=== PATIENT | male | born 1970 | race Caucasian/White ===

== ENCOUNTER 2018-06-09 10:15 | Observation (INO) | payer OTHER, MEDICAID, SELFPAY ==
[2018-06-09] VITALS (15 sets, daily range): BP systolic 112–146; BP diastolic 70–94; PULSE 72–98; RESP 14–90; TEMP 36.5–37.3; O2SAT 16–99; BMI 21.6; BMI 20.4
--- NOTE | 2018-06-09 10:23 | ED.ABDPAIN ---
HPI - Abdominal Pain General Chief Complaint: Abdominal Pain Stated Complaint: RLQ Abdominal Pain Time Seen by Provider: 06/09/18 10:17 Source: patient and EMS Mode of arrival: EMS Limitations: no limitations History of Present Illness HPI narrative: 47-year-old otherwise healthy male presents by air medical transport for evaluation severe right lower quadrant pain and a painful bulge in his groin consistent with incarcerated hernia. The patient was seen and evaluated at an outside facility and sent here for a likely surgical evaluation. Patient has no reported history of injury or known hernia but had sudden onset right lower quadrant pain and the development of this painful bulge about 15 hr ago. His last oral intake was 6:40 p.m. last night. He denies any nausea, vomiting or abdominal pain. He had a bowel movement last night which was. He was given fentanyl 100 mcg IV prior to his arrival. MD complaint: abdominal pain Onset (ago): hour(s) Pain Consistency: constant Location: RLQ Severity: moderate Quality: cramping and aching Radiation: none Migration to: no migration Relieving factors: nothing Exacerbating factors: nothing Associated symptoms: denies other symptoms Related Data Home Medications Medication Instructions Recorded Confirmed No Known Home Medications 06/09/18 06/09/18 Allergies Allergy/AdvReac Type Severity Reaction Status Date / Time aspirin Allergy Hives Verified 06/09/18 10:33 Review of Systems Review of Systems All systems reviewed & are unremarkable except as noted in HPI and below Constitutional Denies chills, Denies fever(s), Denies lethargy and Denies weakness Eyes Denies change in vision, Denies eye discharge, Denies irritation and Denies loss of vision ENT Ears, Nose, Mouth, and Throat: Denies change in voice, Denies neck pain and Denies sore throat Cardiovascular Denies chest pain, Denies irregular heart rhythm, Denies lightheadedness, Denies palpitations, Denies dyspnea, Denies dyspnea on exertion and Denies orthopnea Respiratory Denies cough, Denies dyspnea, Denies dyspnea on exertion and Denies wheezing Gastrointestinal Gastrointestinal: Reports abdominal pain, Denies change in bowel habits, Denies diarrhea, Denies nausea and Denies vomiting Genitourinary Denies hematuria, Denies flank pain, Denies urinary incontinence and Denies urinary urgency Musculoskeletal Denies neck pain Integumentary/Breasts Denies pruritus, Denies erythema, Denies rash and Denies wounds Neurologic Denies confusion, Denies loss of vision and Denies weakness Psychiatric Denies anxiety, Denies confusion, Denies depression, Denies homicidal ideation and Denies suicidal ideation Endocrine Denies palpitations Hematologic/Lymphatic Denies easy bruising Allergic/Immunologic Denies wheezing [facility] Social History household members: none Smoking Status: Current every day smoker alcohol intake: current Exam Narrative Exam Narrative: 47-year-old male, obviously in pain, clutching his right lower abdomen. Initial Vital Signs Initial Vital Signs: Vital Signs Temperature 98.4 F 06/09/18 10:26 Pulse Rate 90 06/09/18 10:26 Respiratory Rate 20 06/09/18 10:26 Blood Pressure 146/87 H 06/09/18 10:26 Pulse Oximetry 98 06/09/18 10:26 Const General: cooperative, well developed and in distress Nutritional Appearance: well nourished Orientation: alert, awake, oriented x3 and not confused HENRI Head: normocephalic and atraumatic Ears: external ears normal and TM's normal bilaterally Nose: external nose normal and No nasal discharge Face and sinus: sinuses nontender, face symmetric, no sinus tenderness and No dry mucous membranes Mouth: oral mucosae normal and moist mucous membranes Teeth and gingiva: dentition normal Throat: tonsils normal and uvula midline Neck Neck: normal visual inspection, trachea midline, No lymphadenopathy, No midline deformity and No JVD Lymphatic: No lymphedema Resp Effort & Inspection: normal respiratory effort, able to speak in complete sentences, no respiratory distress and no use of accessory muscles Auscultation: clear to auscultation bilaterally, no rales, no rhonchi and no wheezes GI Inspection: non-distended Palpation: soft, no hepatosplenomegaly, No guarding, No pulsatile mass and tender (RLQ with painful bulge in inguinal region. Unable to completely reduce. No overlying erythema.) Auscultation: normal bowel sounds Other: no testicular pain or swelling Course Orders Ordered: Dextrose/Sodium Chloride (Dextrose 5%-0.45% Ns) 1,000 mls @ 100 mls/hr IV CONT YUE Last Admin: 06/09/18 18:10 Dose: 100 mls/hr Morphine Sulfate (Morphine) 2 mg IV Q4HR PRN PRN Reason: Pain, Moderate (4-6) Oxycodone/Acetaminophen (Percocet 5/325) 2 tab PO Q4HR PRN PRN Reason: Pain, Moderate (4-6) Ranitidine HCl (Zantac) 150 mg PO BID [facility] Last Admin: 06/09/18 20:23 Dose: 150 mg Discontinued Medications Acetaminophen (Tylenol) 325 mg PO NOW PRN PRN Reason: Pain, Mild (1-3) Bacitracin (Bacitracin) 50,000 unit IRR NOW ONE Stop: 06/09/18 16:37 Last Admin: 06/09/18 16:36 Dose: 50,000 unit Bupivacaine HCl (Sensorcaine 0.5% (Pf)) 30 ml INJ NOW ONE Stop: 06/09/18 16:36 Last Admin: 06/09/18 16:35 Dose: 20 ml Fentanyl (Sublimaze) 50 mcg IV NOW ONE Stop: 06/09/18 11:21 Last Admin: 06/09/18 11:20 Dose: 50 mcg Fentanyl (Sublimaze) 50 mcg IV Q5MIN PRN PRN Reason: Pain, Moderate (4-6) Hydromorphone HCl (Dilaudid) 0.5 mg IV Q5MIN PRN PRN Reason: Pain, Moderate (4-6) Cefotetan Disodium/Dextrose (Cefotan) 2 gm in 50 mls @ 0 mls/hr IV NOW ONE Stop: 06/09/18 11:42 Last Admin: 06/09/18 15:48 Dose: Lactated Ringer's (Lactated Ringers) 1,000 mls @ 100 mls/hr IV CONT [facility] Last Infusion: 06/09/18 17:27 Dose: 0 mls/hr Admin: 06/09/18 14:08 Dose: 100 mls/hr Lactated Ringer's (Lactated Ringers) 1,000 mls @ 42 mls/hr IV CONT [facility] Last Admin: 06/09/18 18:33 Dose: Not Given Cefazolin Sodium/Dextrose (Ancef) 1 gm in 50 mls @ 200 mls/hr IV NOW ONE Stop: 06/09/18 16:52 Last Infusion: 06/09/18 16:15 Dose: 0 mls/hr Admin: 06/09/18 16:08 Dose: 200 mls/hr Meperidine HCl (Demerol) 25 mg IV Q5MIN PRN PRN Reason: Pain or shivering Metoclopramide HCl (Reglan) 10 mg IV NOW PRN PRN Reason: Nausea And Vomiting Midazolam HCl (Versed) 2 mg IV NOW ONE Stop: 06/09/18 11:11 Last Admin: 06/09/18 11:10 Dose: 2 mg Morphine Sulfate (Morphine) 2 mg IV Q2HR PRN PRN Reason: Pain, Moderate (4-6) Last Admin: 06/09/18 14:05 Dose: 2 mg Neomycin/Polymyxin/Bacitracin (Neosporin) 1 each TOP NOW ONE Stop: 06/09/18 16:51 Last Admin: 06/09/18 16:51 Dose: 1 each Nicotine (Nicoderm) 21 mg TOP NOW ONE Stop: 06/09/18 17:55 Last Admin: 06/09/18 18:10 Dose: 21 mg Ondansetron HCl (Zofran) 4 mg IV NOW PRN PRN Reason: Nausea And Vomiting Oxycodone/Acetaminophen (Percocet 5/325) 1 tab PO Q30MIN PRN PRN Reason: Mild or moderate pain Vital Signs - 8 hr 06/09/18 13:31 06/09/18 15:24 06/09/18 16:55 Temperature 98 F 99 F 98.3 F Pulse Rate 86 72 87 Respiratory Rate 18 16 15 Blood Pressure 142/90 H 143/74 H 115/75 Pulse Oximetry 96 97 98 06/09/18 17:00 06/09/18 17:05 06/09/18 17:21 Temperature 99.2 F Pulse Rate 87 89 89 Respiratory Rate 16 16 16 Blood Pressure 113/76 112/75 141/94 H Pulse Oximetry 98 98 98 06/09/18 17:44 06/09/18 17:57 06/09/18 18:25 Temperature 98.3 F 98.5 F Pulse Rate 86 92 H 90 Respiratory Rate 16 16 90 H Blood Pressure 132/83 138/70 121/70 Pulse Oximetry 96 95 16 L 06/09/18 18:55 06/09/18 20:07 Temperature 98.1 F 97.7 F Pulse Rate 78 77 Respiratory Rate 16 16 Blood Pressure 116/70 123/76 Pulse Oximetry 97 98 MDM - Abdominal Pain Lab Data Result diagrams: 06/09/18 10:45 06/09/18 10:45 Lab Results 06/09/18 06/09/18 06/09/18 Range/Units 10:45 10:45 10:45 WBC 13.1 H (4.5-11.0) X10^3/uL RBC 4.47 L (4.5-5.9) X10^6/uL Hgb 14.9 (13.5-17.5) g/dL Hct 43.8 (41-53) % MCV 97.9 (80-100) fL MCH 33.3 (26-34) PG MCHC 34.0 (30-36) % RDW 13.5 (11.6-14.8) % Plt Count 254 (150-400) X10^3/uL Neut % (Auto) 83.0 H (50-75) % Lymph % (Auto) 9.8 L (25-40) % [place] % (Auto) 6.8 (3-14) % Eos % (Auto) 0.1 L (2-4) % Baso % (Auto) 0.3 (0-2) % Neut # (Auto) 06057 H (8394-6706) /uL Sodium 140 (137-145) mmol/L Potassium 4.0 (3.4-5.1) mmol/L Chloride 95 L (98-107) mmol/L Carbon Dioxide 35 H (22-32) mmol/L BUN 16 (9-20) mg/dL Creatinine 0.70 (0.66-1.25) mg/dL Estimated GFR > 60.0 (>60) mL/min BUN/Creatinine Ratio 22.9 H (6-22) Glucose 135 H (70-100) mg/dL Lactate 0.9 (0.7-2.1) mmol/L Calcium 9.7 (8.4-10.2) mg/dL Total Bilirubin 0.9 (0.2-1.3) mg/dL AST 23 (17-59) IU/L ALT 30 (21-72) IU/L Alkaline Phosphatase 93 (38-126) U/L Total Protein 7.6 (6.3-8.2) g/dL Albumin 4.6 (3.5-5.0) g/dL Globulin 3.0 (1.7-4.1) g/dL Albumin/Globulin Ratio 1.5 (1.0-2.8) Discharge Plan Departure Patient Disposition: Admitted As Inpatient Clinical Impression: Incarcerated inguinal hernia Discharge Date/Time: 06/09/18 12:50 Interventions: ED Discharge Assessment Last Done: 06/09/18 12:06 Admit Date/Time: 06/09/18 11:26 Admit Provider: Boom Perez
--- NOTE | 2018-06-09 11:00 | PC.NURSE ---
surgeon at bedside. Verbal consent from pt for surgery if unable to manipulate bowel appropriately with palpation. Paper consent signed by surgeon, placed on chart.
[2018-06-09 11:02] LABS: Add Manual Diff / Slide Review NO; Basophils Percent Auto 0.3 % (0-2); Eosinophils Percent Auto 0.1 % (2-4); Hematocrit 43.8 % (41-53); Hemoglobin 14.9 g/dL (13.5-17.5); Lymphocytes Percent Auto 9.8 % (25-40); Mean Corpuscular Hemoglobin 33.3 PG (26-34); Mean Corpuscular Volume 97.9 fL (80-100); Monocytes Percent Auto 6.8 % (3-14); Neutrophils Absolute Auto 10900 /uL (3000-5900); Platelet Count 254 X10^3/uL (150-400); Red Blood Cell Count 4.47 X10^6/uL (4.5-5.9); Red Cell Distribution Width 13.5 % (11.6-14.8); White Blood Cell Count 13.1 X10^3/uL (4.5-11.0)
[2018-06-09 11:06] LABS: Lactate (Lactic Acid) 0.9 mmol/L (0.7-2.1)
[2018-06-09 11:07] LABS: Alanine Aminotransferase 30 IU/L (21-72); Albumin 4.6 g/dL (3.5-5.0); Albumin Globulin Ratio 1.5 (1.0-2.8); Alkaline Phosphatase 93 U/L (38-126); Aspartate Aminotransferase 23 IU/L (17-59); BUN Creatinine Ratio 22.9 (6-22); Bilirubin Total 0.9 mg/dL (0.2-1.3); Blood Urea Nitrogen 16 mg/dL (9-20); Calcium 9.7 mg/dL (8.4-10.2); Carbon Dioxide 35 mmol/L (22-32); Chloride 95 mmol/L (98-107); Estimated Glomerular Filt Rate > 60.0 mL/min (>60); Glucose 135 mg/dL (70-100); HEMOLYSIS < 15 (0-50); Sodium 140 mmol/L (137-145); Total Protein 7.6 g/dL (6.3-8.2)
[2018-06-09] MEDS: MIDAZOLAM 2 MG/2 ML VIAL IV (11:10)
[2018-06-09] MEDS: fentaNYL 100 MCG/2 ML INJ 50 MCG IV (11:20)
--- NOTE | 2018-06-09 12:10 | ED_ITS ---
HPI - Abdominal Pain General Chief Complaint: Abdominal Pain Stated Complaint: RLQ Abdominal Pain Time Seen by Provider: 06/09/18 10:17 Source: patient and EMS Mode of arrival: EMS Limitations: no limitations History of Present Illness HPI narrative: 47-year-old otherwise healthy male presents by air medical transport for evaluation severe right lower quadrant pain and a painful bulge in his groin consistent with incarcerated hernia. The patient was seen and evaluated at an outside facility and sent here for a likely surgical evaluation. Patient has no reported history of injury or known hernia but had sudden onset right lower quadrant pain and the development of this painful bulge about 15 hr ago. His last oral intake was 6:40 p.m. last night. He denies any nausea, vomiting or abdominal pain. He had a bowel movement last night which was. He was given fentanyl 100 mcg IV prior to his arrival. MD complaint: abdominal pain Onset (ago): hour(s) Pain Consistency: constant Location: RLQ Severity: moderate Quality: cramping and aching Radiation: none Migration to: no migration Relieving factors: nothing Exacerbating factors: nothing Associated symptoms: denies other symptoms Related Data Home Medications Medication Instructions Recorded Confirmed No Known Home Medications 06/09/18 06/09/18 Allergies Allergy/AdvReac Type Severity Reaction Status Date / Time aspirin Allergy Hives Verified 06/09/18 10:33 Review of Systems Review of Systems All systems reviewed & are unremarkable except as noted in HPI and below Constitutional Denies chills, Denies fever(s), Denies lethargy and Denies weakness Eyes Denies change in vision, Denies eye discharge, Denies irritation and Denies loss of vision ENT Ears, Nose, Mouth, and Throat: Denies change in voice, Denies neck pain and Denies sore throat Cardiovascular Denies chest pain, Denies irregular heart rhythm, Denies lightheadedness, Denies palpitations, Denies dyspnea, Denies dyspnea on exertion and Denies orthopnea Respiratory Denies cough, Denies dyspnea, Denies dyspnea on exertion and Denies wheezing Gastrointestinal Gastrointestinal: Reports abdominal pain, Denies change in bowel habits, Denies diarrhea, Denies nausea and Denies vomiting Genitourinary Denies hematuria, Denies flank pain, Denies urinary incontinence and Denies urinary urgency Musculoskeletal Denies neck pain Integumentary/Breasts Denies pruritus, Denies erythema, Denies rash and Denies wounds Neurologic Denies confusion, Denies loss of vision and Denies weakness Psychiatric Denies anxiety, Denies confusion, Denies depression, Denies homicidal ideation and Denies suicidal ideation Endocrine Denies palpitations Hematologic/Lymphatic Denies easy bruising Allergic/Immunologic Denies wheezing [facility] Social History household members: none Smoking Status: Current every day smoker alcohol intake: current Exam Narrative Exam Narrative: 47-year-old male, obviously in pain, clutching his right lower abdomen. Initial Vital Signs Initial Vital Signs: Vital Signs Temperature 98.4 F 06/09/18 10:26 Pulse Rate 90 06/09/18 10:26 Respiratory Rate 20 06/09/18 10:26 Blood Pressure 146/87 H 06/09/18 10:26 Pulse Oximetry 98 06/09/18 10:26 Const General: cooperative, well developed and in distress Nutritional Appearance: well nourished Orientation: alert, awake, oriented x3 and not confused HENDE Head: normocephalic and atraumatic Ears: external ears normal and TM's normal bilaterally Nose: external nose normal and No nasal discharge Face and sinus: sinuses nontender, face symmetric, no sinus tenderness and No dry mucous membranes Mouth: oral mucosae normal and moist mucous membranes Teeth and gingiva: dentition normal Throat: tonsils normal and uvula midline Neck Neck: normal visual inspection, trachea midline, No lymphadenopathy, No midline deformity and No JVD Lymphatic: No lymphedema Resp Effort & Inspection: normal respiratory effort, able to speak in complete sentences, no respiratory distress and no use of accessory muscles Auscultation: clear to auscultation bilaterally, no rales, no rhonchi and no wheezes GI Inspection: non-distended Palpation: soft, no hepatosplenomegaly, No guarding, No pulsatile mass and tender (RLQ with painful bulge in inguinal region. Unable to completely reduce. No overlying erythema.) Auscultation: normal bowel sounds Other: no testicular pain or swelling Course Orders Ordered: Dextrose/Sodium Chloride (Dextrose 5%-0.45% Ns) 1,000 mls @ 100 mls/hr IV CONT YUE Last Admin: 06/09/18 18:10 Dose: 100 mls/hr Morphine Sulfate (Morphine) 2 mg IV Q4HR PRN PRN Reason: Pain, Moderate (4-6) Oxycodone/Acetaminophen (Percocet 5/325) 2 tab PO Q4HR PRN PRN Reason: Pain, Moderate (4-6) Ranitidine HCl (Zantac) 150 mg PO BID [facility] Last Admin: 06/09/18 20:23 Dose: 150 mg Discontinued Medications Acetaminophen (Tylenol) 325 mg PO NOW PRN PRN Reason: Pain, Mild (1-3) Bacitracin (Bacitracin) 50,000 unit IRR NOW ONE Stop: 06/09/18 16:37 Last Admin: 06/09/18 16:36 Dose: 50,000 unit Bupivacaine HCl (Sensorcaine 0.5% (Pf)) 30 ml INJ NOW ONE Stop: 06/09/18 16:36 Last Admin: 06/09/18 16:35 Dose: 20 ml Fentanyl (Sublimaze) 50 mcg IV NOW ONE Stop: 06/09/18 11:21 Last Admin: 06/09/18 11:20 Dose: 50 mcg Fentanyl (Sublimaze) 50 mcg IV Q5MIN PRN PRN Reason: Pain, Moderate (4-6) Hydromorphone HCl (Dilaudid) 0.5 mg IV Q5MIN PRN PRN Reason: Pain, Moderate (4-6) Cefotetan Disodium/Dextrose (Cefotan) 2 gm in 50 mls @ 0 mls/hr IV NOW ONE Stop: 06/09/18 11:42 Last Admin: 06/09/18 15:48 Dose: Lactated Ringer's (Lactated Ringers) 1,000 mls @ 100 mls/hr IV CONT [facility] Last Infusion: 06/09/18 17:27 Dose: 0 mls/hr Admin: 06/09/18 14:08 Dose: 100 mls/hr Lactated Ringer's (Lactated Ringers) 1,000 mls @ 42 mls/hr IV CONT [facility] Last Admin: 06/09/18 18:33 Dose: Not Given Cefazolin Sodium/Dextrose (Ancef) 1 gm in 50 mls @ 200 mls/hr IV NOW ONE Stop: 06/09/18 16:52 Last Infusion: 06/09/18 16:15 Dose: 0 mls/hr Admin: 06/09/18 16:08 Dose: 200 mls/hr Meperidine HCl (Demerol) 25 mg IV Q5MIN PRN PRN Reason: Pain or shivering Metoclopramide HCl (Reglan) 10 mg IV NOW PRN PRN Reason: Nausea And Vomiting Midazolam HCl (Versed) 2 mg IV NOW ONE Stop: 06/09/18 11:11 Last Admin: 06/09/18 11:10 Dose: 2 mg Morphine Sulfate (Morphine) 2 mg IV Q2HR PRN PRN Reason: Pain, Moderate (4-6) Last Admin: 06/09/18 14:05 Dose: 2 mg Neomycin/Polymyxin/Bacitracin (Neosporin) 1 each TOP NOW ONE Stop: 06/09/18 16:51 Last Admin: 06/09/18 16:51 Dose: 1 each Nicotine (Nicoderm) 21 mg TOP NOW ONE Stop: 06/09/18 17:55 Last Admin: 06/09/18 18:10 Dose: 21 mg Ondansetron HCl (Zofran) 4 mg IV NOW PRN PRN Reason: Nausea And Vomiting Oxycodone/Acetaminophen (Percocet 5/325) 1 tab PO Q30MIN PRN PRN Reason: Mild or moderate pain Vital Signs - 8 hr 06/09/18 13:31 06/09/18 15:24 06/09/18 16:55 Temperature 98 F 99 F 98.3 F Pulse Rate 86 72 87 Respiratory Rate 18 16 15 Blood Pressure 142/90 H 143/74 H 115/75 Pulse Oximetry 96 97 98 06/09/18 17:00 06/09/18 17:05 06/09/18 17:21 Temperature 99.2 F Pulse Rate 87 89 89 Respiratory Rate 16 16 16 Blood Pressure 113/76 112/75 141/94 H Pulse Oximetry 98 98 98 06/09/18 17:44 06/09/18 17:57 06/09/18 18:25 Temperature 98.3 F 98.5 F Pulse Rate 86 92 H 90 Respiratory Rate 16 16 90 H Blood Pressure 132/83 138/70 121/70 Pulse Oximetry 96 95 16 L 06/09/18 18:55 06/09/18 20:07 Temperature 98.1 F 97.7 F Pulse Rate 78 77 Respiratory Rate 16 16 Blood Pressure 116/70 123/76 Pulse Oximetry 97 98 MDM - Abdominal Pain Lab Data Result diagrams: 06/09/18 10:45 06/09/18 10:45 Lab Results 06/09/18 06/09/18 06/09/18 Range/Units 10:45 10:45 10:45 WBC 13.1 H (4.5-11.0) X10^3/uL RBC 4.47 L (4.5-5.9) X10^6/uL Hgb 14.9 (13.5-17.5) g/dL Hct 43.8 (41-53) % MCV 97.9 (80-100) fL MCH 33.3 (26-34) PG MCHC 34.0 (30-36) % RDW 13.5 (11.6-14.8) % Plt Count 254 (150-400) X10^3/uL Neut % (Auto) 83.0 H (50-75) % Lymph % (Auto) 9.8 L (25-40) % [place] % (Auto) 6.8 (3-14) % Eos % (Auto) 0.1 L (2-4) % Baso % (Auto) 0.3 (0-2) % Neut # (Auto) 47908 H (4227-9037) /uL Sodium 140 (137-145) mmol/L Potassium 4.0 (3.4-5.1) mmol/L Chloride 95 L (98-107) mmol/L Carbon Dioxide 35 H (22-32) mmol/L BUN 16 (9-20) mg/dL Creatinine 0.70 (0.66-1.25) mg/dL Estimated GFR > 60.0 (>60) mL/min BUN/Creatinine Ratio 22.9 H (6-22) Glucose 135 H (70-100) mg/dL Lactate 0.9 (0.7-2.1) mmol/L Calcium 9.7 (8.4-10.2) mg/dL Total Bilirubin 0.9 (0.2-1.3) mg/dL AST 23 (17-59) IU/L ALT 30 (21-72) IU/L Alkaline Phosphatase 93 (38-126) U/L Total Protein 7.6 (6.3-8.2) g/dL Albumin 4.6 (3.5-5.0) g/dL Globulin 3.0 (1.7-4.1) g/dL Albumin/Globulin Ratio 1.5 (1.0-2.8) Discharge Plan Departure Patient Disposition: Admitted As Inpatient Clinical Impression: Incarcerated inguinal hernia Discharge Date/Time: 06/09/18 12:50 Interventions: ED Discharge Assessment Last Done: 06/09/18 12:06 Admit Date/Time: 06/09/18 11:26 Admit Provider: Boom Perez
--- NOTE | 2018-06-09 13:37 | PC.ADMIT ---
[facility] Admission Note: The patient,Royer Boone,47 y/o, was given written information regarding hospital policies, unit procedures and contact persons. Patient's smoking status: Current every day smoker. Vital Signs - 8 hr 06/09/18 10:26 06/09/18 11:17 06/09/18 11:44 Temperature 98.4 F Pulse Rate 90 90 98 H Respiratory Rate 20 14 16 Blood Pressure 146/87 H Blood Pressure [Right Arm] 139/72 131/86 Pulse Oximetry 98 98 99 06/09/18 13:31 Temperature 98 F Pulse Rate 86 Respiratory Rate 18 Blood Pressure 142/90 H Blood Pressure [Right Arm] Pulse Oximetry 96 Patient denies daily ETOH. States some days he'll have a couple beers, some days a 6 pack, some times he'll go a few days without ETOH. Dr. Pereira notified. No CIWA for now. Monitor closely and [facility]OC to [facility] tomorrow am. Received verbal telephone orders for pain management, IVF. Patient states he is a [employer], and he started feeling poorly last night, with abd pain, vomiting. Npo since last night. Report given to Angelica, primary RN.
[2018-06-09] MEDS: MORPHINE 2 MG/ML INJ IV (14:05)
[2018-06-09] MEDS: LACTATED RINGERS 1,000 ML 100 ML IV (14:08)
--- NOTE | 2018-06-09 14:50 | HP_ITS ---
DATE OF SERVICE: 06/09/2018 Patient is in the emergency room, 47 years old, developed sudden painful mass in the right groin last evening, then was flown over to [facility] from, I think, [facility], given some analgesics during the flight, and on arrival in the emergency room here, he has an obvious incarcerated strangulated right inguinal hernia. The emergency room physician, Dr. Ceron, attempted to reduce this hernia and was able to get about 50% of it reduced. I came down and gave the patient some Versed and fentanyl, and I am unable to reduce it any further. Patient has white count of 13,000. Initially had an elevated lactate which has now returned to normal on repeat but he has an incarcerated, possibly strangulated, right inguinal hernia and he will be prepared for surgery urgently. Unfortunately, the operating rooms are all full and we will probably be able to operate on him within about 4-5 hours. In the interim, I'm giving him some IV antibiotics and will admitted to the hospital, keep him n.p.o. I did explain to the patient before I gave him any Versed and fentanyl here in the emergency room that he may need an open operation and he fully understood and agreed, so we will have him sign a consent for that. I have 2 witnesses that that, both Dr. Ceron and the ER nurse. PAST MEDICAL HISTORY: Denies any prior surgery. Denies diabetes, heart disease, or hypertension. ALLERGIES: NO KNOWN ALLERGIES. MEDICATIONS: He has no known home medications. REVIEW OF SYSTEMS: On system review, he denies exertional chest pain or unusual or shortness of breath. G.I. is negative. negative. Neurologic is no history of strokes or seizures. PHYSICAL EXAMINATION VITAL SIGNS: Blood pressure 139/72, heart rate 90, respirations 14, room air O2 sat 98%. HEENT: Ears, nose, and throat are normal. NECK: No adenopathy. CHEST: Lungs are clear. HEART: Regular rhythm, no murmur. ABDOMEN: Somewhat tender in the midepigastrium and periumbilical area, mildly so. No signs of peritonitis. Right groin exam: He has a non-reducible rock- hard mass which is very tender. I am unable to reduce that mass. The remaining physical is unremarkable. DIAGNOSIS: Incarcerated, possibly strangulated, right inguinal hernia. PLAN: IV fluids, antibiotics, and urgent surgery which will be done open. Royer Boone - Danielle/ doc#: [id number]/job#: [id number] dd: 06/09/2018 11:37:00 dt: 06/09/2018 14:37:00 DICTATING MD/COPIES TO: Boom Perez MD COPIES MNE: MALINI
[2018-06-09] MEDS: CEFAZOLIN 1 GM/50 ML FROZ.PIGGY IV (16:08)
--- NOTE | 2018-06-09 16:24 | SUR.OPER ---
Supine on padded OR bed, head on pillow, arms secured on padded arm boards at <90 degrees abduction, legs uncrossed, safety belt at thigh, tape over blanket over lower legs.
[2018-06-09] MEDS: BUPIVACAINE 0.5% (PF) VIAL 30 ML INJ (16:35)
[2018-06-09] MEDS: BACITRACIN 50,000 UNIT VIAL 50000 UNIT IRR (16:36)
[2018-06-09] MEDS: NEOMYCIN/POLYMYXIN/BACITRA UD OINT 1 EACH TOP (16:51)
[2018-06-09] MEDS: DEXTROSE 5%-0.45% NS 1,000 ML 100 ML IV (18:10)
[2018-06-09] MEDS: NICOTINE 21 MG PATCH TOP (18:10)
--- NOTE | 2018-06-09 18:34 | OP_ITS ---
DATE OF SERVICE: 06/09/2018 PREOP DIAGNOSIS: Incarcerated right inguinal hernia. POSTOP DIAGNOSIS: Incarcerated right femoral hernia. PROCEDURE: Modified Samantha repair of an incarcerated right femoral hernia. SURGEON: Boom Perez MD DESCRIPTION OF PROCEDURE: Patient is given a general anesthetic and he was properly identified during surgical pause. The right inguinal incision was made exposing Juliano fascia, divided sharply. The commonly encountered venous structures were ligated with 2-0 Vicryl. There was excellent hemostasis. The external oblique aponeurosis was opened in the direction of its fibers through the external spermatic ring. The spermatic cord was elevated. The patient's inguinal mass which was inflamed, actually exited the femoral canal below Poupart ligament and as such represented an incarcerated right femoral hernia, so I divided Poupart ligament to free up and open the sac. The hernia sac contained incarcerated omentum which was viable. This was reduced back into the peritoneal cavity. Next, I fashioned a portion of polypropylene mesh to cover Hesselbach triangle and re-created Poupart ligament with the inferior edge of the mesh, stapling the mesh first to the pubic tubercle, and then stapling it down David ligament for short distance, and then reattaching the Poupart ligament to the mesh with jojo. Then I carried the medial jojo up over the conjoined tendon completely covering Hesselbach triangle. Care was taken to avoid injury to the ilioinguinal nerve which was easily apparent, and then I made an aperture or fishtail in the lateral aspect of the mesh to allow for exiting of the spermatic cord. The spermatic cord then lays on top of the mesh. The area was then irrigated with copious bacitracin saline, aspirated dry. There was no bleeding. I closed the external oblique aponeurosis over the cord and mesh with 2-0 running Vicryl. Closed the Juliano's with interrupted Vicryl. There was excellent hemostasis. Stapled the skin. Sterile dressing was applied. Procedure was very well tolerated. Local was administered to the superficial wound. Royer Boone - /juan miguel/ doc#: [id number]/job#: [id number] dd: 06/09/2018 17:00:00 dt: 06/09/2018 18:17:00 DICTATING MD/COPIES TO: Boom Perez MD COPIES MNE: MALINI
[2018-06-10 00:10] VITALS: BP 128/67; PULSE 84; RESP 18; TEMP 36.2; O2SAT 95
[2018-06-10 04:00] VITALS: BP 114/70; PULSE 77; RESP 18; TEMP 36.5; O2SAT 95
[2018-06-10] MEDS: OXYCODONE/ACETAMINOPHEN 5/325 TABLET 2 TAB PO ×2 (04:12→08:34)
[2018-06-10] MEDS: DEXTROSE 5%-0.45% NS 1,000 ML 100 ML IV (05:23)
[2018-06-10 07:30] VITALS: BP 113/69; PULSE 69; RESP 16; TEMP 36.4; O2SAT 97
--- NOTE | 2018-06-10 12:48 | CM.IDA ---
DCP Assessment Note: Pt eager to leave this morning. Dressed and ready, sitting in chair when this MUSIC THEORY TEACHER visited. Mom picking pt up today and pt plans to take the evening ferry back to [place]. No barriers to safe [place] home. STEF Aguilera Discharge Planning/Care Management CM Discharge Assessment Start: 06/10/18 12:45 Freq: Status: Active Protocol: Document 06/10/18 12:45 SADAF (Rec: 06/10/18 12:48 [id number]) Discharge Planning Assessment Assigned Superintendent Power STEF Bajwa DPOA/Assigned Designee Name erin Kauffman Contact Information [phone] Advance Directives? No History Provided By Patient Prior Living Arrangements Mobile home Household Members none Independent with ADL's Yes Is patient alert and oriented? Yes Barriers to Discharge No Discharge Plan Home Transportation Arrangement Mom to transport, ferry home this evening Referrals Initiated None needed Additional Comment Home w/ no needs. Pt feels a lot better than he did before surgery. Whiteboard Updated in Patient Room with Yes name and ext. # of Superintendent Power Review Status In Process Please Provide Date Initial DC 06/10/18 Assessment Was Performed
== END 2018-06-10 11:10 | disposition home or self-care (01) ==
LOC: ED 11:18 → AC 11:28
PROVIDERS: Admitting Provider Surgery; Emergency Provider Emergency Medicine; Visit Provider Surgery
PROC: (CPT 49553; principal; 2018-06-09 16:00)
DX: R10.11 Right upper quadrant pain (principal); F17.210 Nicotine dependence, cigarettes, uncomplicated
CPT/HCPCS: 49553; 36415; 80053; 83605; 85025; 96374; 96375; 99219; 99282; 99285; 99406; C1781; G0378; J1100; J1885; J2250; J2270; J2405; J2704; J3010

== ENCOUNTER → 2021-06-26 10:08 | Outpatient (CLI) | payer OTHER, MEDICAID, SELFPAY ==
[2018-12-19 12:03] VITALS: BMI 21.6
[2021-06-26 18:51] LABS: Add Manual Diff / Slide Review NO; Basophils Absolute Auto 0 /uL (0-100); Basophils Percent Auto 0.5 % (0-2); Eosinophils Absolute Auto 100 /uL (0-450); Eosinophils Percent Auto 1.2 % (2-4); Hematocrit 39.8 % (41-53); Hemoglobin 13.5 g/dL (13.5-17.5); Lymphocytes Absolute Auto 2100 /uL (1100-4500); Lymphocytes Percent Auto 23.2 % (25-40); Mean Corpuscular Hemoglobin 33.9 PG (26-34); Mean Corpuscular Volume 99.7 fL (80-100); Monocytes Absolute Auto 700 /uL (0-900); Monocytes Percent Auto 7.3 % (3-14); Neutrophils Absolute Auto 6300 /uL (1500-7000); Neutrophils Percent Auto 67.8 % (50-75); Platelet Count 212 X10^3/uL (150-400); Red Blood Cell Count 3.99 X10^6/uL (4.5-5.9); Red Cell Distribution Width 12.8 % (11.6-14.8); White Blood Cell Count 9.2 X10^3/uL (4.5-11.0)
[2021-06-26 19:07] LABS: Alanine Aminotransferase 25 IU/L (<50); Albumin 4.3 g/dL (3.5-5.0); Albumin Globulin Ratio 1.6 (1.0-2.8); Alkaline Phosphatase 121 U/L (38-126); Aspartate Aminotransferase 23 IU/L (17-59); BUN Creatinine Ratio 17.1 (6-22); Bilirubin Total 0.4 mg/dL (0.2-1.3); Blood Urea Nitrogen 12 mg/dL (9-20); Calcium 9.2 mg/dL (8.4-10.2); Carbon Dioxide 25 mmol/L (22-32); Chloride 103 mmol/L (98-107); Cholesterol 179 mg/dL (140-199); Estimated Glomerular Filt Rate > 60.0 mL/min (>60); Globulin 2.7 g/dL (1.7-4.1); Glucose 98 mg/dL (70-100); HDL Cholesterol 47 mg/dL (40-60); HEMOLYSIS < 15 (0-50); LDL Cholesterol Calculated 108 mg/dL (<100); Potassium 4.8 mmol/L (3.4-5.1); Sodium 139 mmol/L (137-145); Triglycerides 122 mg/dL (35-150)
[2021-06-26 19:10] LABS: Hemoglobin A1C% w Est Avg Glu 5.4 % (4.0-6.0)
[2021-06-26 19:37] LABS: Prostate Specific Antigen Scrn 0.372 ng/mL (0.1-4.0)
== END ==
PROVIDERS: PCP Family Medicine; Visit Provider Physician Assistant
DX: F17.209 Nicotine dependence, unspecified, with unspecified nicotine-induced disorders (principal); Z87.898 Personal history of other specified conditions; Z12.5 Encounter for screening for malignant neoplasm of prostate
CPT/HCPCS: 80053; 80061; 83036; 85025; G0103

== ENCOUNTER → 2021-12-23 13:11 | Outpatient (CLI) | payer OTHER, MEDICAID, SELFPAY ==
[2018-12-19 12:03] VITALS: BMI 21.6
[2021-12-23 19:49] LABS: COVID19 - ORCAS (NP or Nasal) Negative (Negative)
== END ==
PROVIDERS: PCP Family Medicine; Visit Provider Physician Assistant
DX: Z01.812 Encounter for preprocedural laboratory examination (principal); Z20.822 Contact with and (suspected) exposure to COVID-19
CPT/HCPCS: C9803; U0003

== ENCOUNTER 2023-07-05 13:29 | Emergency (ER) | payer OTHER, MEDICAID, SELFPAY ==
[2018-12-19 12:03] VITALS: BMI 21.6
[2023-07-05 13:41] VITALS: BP 182/101; PULSE 88; RESP 17; TEMP 36.6; O2SAT 100; BMI 23.1
--- NOTE | 2023-07-05 13:48 | DI.RAD.S_ITS ---
PROCEDURE: XR CHEST 2V INDICATIONS: upper back pain, difficulty w/ voice, + smoker TECHNIQUE: 2 views of the chest were acquired. COMPARISON: None. FINDINGS: Surgical changes and devices: None. Lungs and pleura: Lungs are clear. No pleural effusions or pneumothorax. Mediastinum: Mediastinal contours are normal. Heart size is normal. Bones and chest wall: No suspicious bony abnormalities. Soft tissues appear unremarkable. IMPRESSION: No acute cardiopulmonary abnormality is seen. Dictated by: Fern Theodore M.D. on 07/05/2023 at 14:24 Approved by: Fern Theodore M.D. on 07/05/2023 at 14:25
--- NOTE | 2023-07-05 16:09 | ED_ITS ---
HPI - Back Pain/Injury General Chief Complaint: Back Pain/Injury Stated Complaint: needs to have back looked at Time Seen by Provider: 07/05/23 15:54 Source: patient History of Present Illness HPI Narrative: 52-year-old male presents for right-sided back pain x2 3 months. Pain is an aching, pulling sensation, worse with movement. Patient has been attempting stretches at home without significant relief. 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 His back is often aggravated after cleaning the floors. Nothing seems to be making it better and so he decided to present today for evaluation. No medications taken at home for symptoms. Related Data Previous Rx's Medication Instructions Recorded albuterol sulfate 90 mcg/actuation 2 puff inhalation Q4-6H PRN 06/24/21 aerosol inhaler shortness of breath or wheezing #8.5 grams methocarbamol 500 mg tablet 500 mg PO TID #30 tabs 07/05/23 naproxen sodium 550 mg tablet 550 mg PO Q12H PRN pain #20 tabs 07/05/23 Allergies Allergy/AdvReac Type Severity Reaction Status Date / Time aspirin Allergy Hives Verified 07/05/23 13:46 Review of Systems Review of Systems Narrative: Negative except as noted above Patient History Medical History (Updated 07/05/23 @ 16:51 by Tania Gaytan MD) Vision disorder History of nocturia Acute thoracic myofascial strain Encounter for removal of jojo At risk of UTI Screening for HIV (human immunodeficiency virus) Screening for prostate cancer Irreducible right femoral hernia Surgical History (Updated 06/27/21 @ 21:46 by Iza Manriquez) Anesthesia S/P right inguinal herniorrhaphy H/O hernia repair Social History marital status: unmarried,single details: Construction household members: none Smoking Status: Current every day smoker alcohol intake: current Smoking Status: Current every day smoker alcohol intake frequency: a few times a week Substance Use Type: marijuana Exam Initial Vital Signs Initial Vital Signs: Vital Signs Temperature 98 F 07/05/23 13:41 Pulse Rate 88 07/05/23 13:41 Respiratory Rate 17 07/05/23 13:41 Blood Pressure 182/101 H 07/05/23 13:41 Pulse Oximetry 100 07/05/23 13:41 Oxygen Delivery Method Room Air 07/05/23 13:41 Const: Awake, alert, no acute distress, nontoxic appearing Eyes: PERRL, EOMI, conjunctiva normal ENT: Atraumatic, dentition normal, mucous membranes moist Cardiac: regular rate, regular rhythm RESP: unlabored, clear bilaterally, no wheezing GI: Atraumatic, soft, nontender, nondistended, no rebound, no guarding MSK Back: Atraumatic, full range of motion, no midline tenderness, para-scapular muscle spasm R shoulder Skin: Warm, Dry, intact, no rashes Neuro: AO x3, CN II-XII grossly intact, moves all extremities Psych: affect normal, mood normal, not suicidal, not homicidal Course Course Course Narrative: Paraspinal and parascapular right-sided muscle spasm. 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 No midline tenderness, no indication for CT imaging. Patient offered trigger point injection, he declined reporting fear of needles. Patient was given several medications for pain, counseled on appropriate stretching exercises, use of heat, use of anti- inflammatories for relief. Short course of muscle relaxers sent to pharmacy. ED return precautions discussed at bedside. Patient expressed understanding of the plan and is in agreement at this time. All questions answered at the time of discharge. Orders Ordered: Discontinued Medications Dexamethasone (Dexamethasone 10 Mg/Ml Vial) 10 mg PO NOW ONE Stop: 07/05/23 16:00 Last Admin: 07/05/23 16:14 Dose: 10 mg Documented By: SS Lidocaine (Lidocaine Patch 1 Each Adh..Patch) 1 each TOP NOW ONE Stop: 07/05/23 16:00 Last Admin: 07/05/23 16:15 Dose: 1 each Documented By: SS Methocarbamol (Methocarbamol 500 Mg Tablet) 750 mg PO NOW ONE Stop: 07/05/23 16:00 Last Admin: 07/05/23 16:13 Dose: 750 mg Documented By: SS Naproxen (Naproxen 250 Mg Tablet) 500 mg PO NOW ONE Stop: 07/05/23 16:00 Last Admin: 07/05/23 16:15 Dose: 500 mg Documented By: SS Vital Signs Vital signs: Vital Signs - 8 hr 07/05/23 13:41 07/05/23 16:10 Temperature 98 F Pulse Rate 88 83 Respiratory Rate 17 20 Blood Pressure 182/101 H 152/97 H Pulse Oximetry 100 99 Oxygen Delivery Method Room Air Room Air Discharge Plan Departure Patient Disposition: Home Clinical Impression: Back muscle spasm, Back pain Instructions: DI for Back Spasm Activity Restrictions/Additional Instructions: TAKE THE PRESCRIBED MEDICATIONS WITH TYLENOL. STRETCH YOUR ARMS ACROSS YOUR BODY TO HELP STRETCH THE BACK MUSCLES. Prescriptions: New methocarbamol 500 mg tablet 500 mg PO TID Qty: 30 0RF naproxen sodium 550 mg tablet 550 mg PO Q12H PRN (Reason: pain) Qty: 20 0RF No Action albuterol sulfate 90 mcg/actuation HFA aerosol inhaler 2 puff inhalation Q4-6H PRN (Reason: shortness of breath or wheezing) Qty: 8.5 2RF Referrals: Miscellaneous,Doctor, MD [Primary Care Provider] - Stand Alone Forms: Patient Portal/API, Work Release Note
[2023-07-05 16:10] VITALS: BP 152/97; PULSE 83; RESP 20; O2SAT 99
[2023-07-05] MEDS: methocarbamoL 500 MG TABLET 750 MG PO (16:13)
[2023-07-05] MEDS: DEXAMETHASONE 10 MG/ML VIAL PO (16:14)
[2023-07-05] MEDS: LIDOCAINE PATCH 1 EACH ADH..PATCH TOP (16:15)
[2023-07-05] MEDS: NAPROXEN 250 MG TABLET 500 MG PO (16:15)
[2023-07-05 17:18] VITALS: BP 147/78; PULSE 74; O2SAT 99
== END 2023-07-05 17:21 | disposition home or self-care (01) ==
PROVIDERS: Emergency Provider Emergency Medicine
DX: M62.830 Muscle spasm of back (principal); M54.9 Dorsalgia, unspecified
CPT/HCPCS: 71046; 99283; 99284; J1100